=== PATIENT | female | born 1970 | race Two or more races ===

== ENCOUNTER → 2020-12-14 | Emergency (ER) | payer OTHER ==
[~2020-12-14] VITALS: Ht 165.1 cm; Wt 51.7 kg
[~2020-12-14] MED LIST: ALBUTEROL2.5 MG/3 M IH; AMOX-CLAV 875-1 EACH; CHILDREN'S FLO5.9 ML; GILTUSS TR TAB1 EACH; QNASL10.6 GM
== END | disposition home or self-care (01) ==
LOC: ER 00:26
DX: J20.9 Acute bronchitis, unspecified (principal); Z03.818 Encounter for observation for suspected exposure to other biological agents ruled out

== ENCOUNTER 2023-05-08 16:06 | Emergency (ER) | payer OTHER ==
[~2023-05-08] VITALS: Ht 165.1 cm; Wt 56.7 kg
[2023-05-08] MEDS ORDERED: CLONAZEPAM0.5 MG PO (16:38)
[2023-05-08] MEDS ORDERED: PROGESTERONE200 MG PO (16:39)
[2023-05-08] MEDS ORDERED: ESTRADIOL42.5 GM VG (16:39)
== END 2023-05-08 21:03 | disposition home or self-care (01) ==
LOC: ER 16:07
DX: S13.4XXA Sprain of ligaments of cervical spine, initial encounter (principal); V49.9XXA Car occupant (driver) (passenger) injured in unspecified traffic accident, initial encounter; Y93.89 Activity, other specified; Y92.413 State road as the place of occurrence of the external cause